=== PATIENT | male | born 1990 | race Caucasian/White ===

== ENCOUNTER 2018-05-21 07:39 | Outpatient (CLI) | payer OTHER ==
[2018-05-21] MEDS ORDERED: Gadobenate Dimeglumine 529 MG/1 ML (20ML VIAL) ONE (10:18)
--- NOTE | 2018-05-21 10:40 | MRI ---
MRI THORACIC SPINE WITHOUT CONTRAST: History: History of low back surgery in 2016. Pain. Comparison: None. Technique: MRI of the thoracic spine was performed without intravenous gadolinium administration. Mul tisequential, multiplanar imaging is performed. FINDINGS: Appropriate T1 marrow signal intensity of the thoracic vertebrae. Thoracic spine vertebral body heigh t is maintained. There is no fracture. No significant STIR hyperintensity to suggest vertebral body e sarah or ligamentous injury. Visualized mediastinal structures, lung parenchyma and solid organs are unremarkable. Conus medullaris terminates at the inferior aspect of T12. The thoracic cord has an overall normal size and signal intensity. There is a central T2 hyperintense lesion that starts at the T5 level and extends inferiorly to the level of T9. A syringohydromyelia i s favored. However, post contrast imaging is recommended to exclude an underlying intramedullary proc ess. Throughout the thoracic spine, no significant central canal stenosis or foraminal narrowing. IMPRESSION: 1. No significant central canal stenosis or foraminal narrowing. 2. 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 3. Post contrast imaging is recommended to exclude a possible underlying intermedullary mass. ADDENDUM HISTORY: Possible syringohydromyelia noted in the thoracic spine. TECHNIQUE: Post contrast imaging of the thoracic spine is performed in the axial plane. FINDINGS: There is no evidence of abnormal enhancement of the thoracic cord. No cord expansion. There is no a bnormal enhancement of the thoracic vertebrae. IMPRESSION: T2 hyperintensity noted in the thoracic cord, compatible with syringohydromyelia. There is no abnorm al enhancement of the thoracic cord. POS: [facility]
--- NOTE | 2018-05-21 11:05 | MRI ---
MRI LUMBAR SPINE WITH AND WITHOUT CONTRAST: HISTORY: Lumbar radiculopathy. Right hip pain, extending to the groin and down the right thigh. COMPARISON: None. TECHNIQUE: MRI lumbar spine is performed with and without intravenous Gadolinium administration. Multisequentia l, multiplanar imaging is performed. FINDINGS: Appropriate T1 marrow signal intensity of the lumbar vertebra. Lumbar spine vertebral body height is maintained, and there is no fracture. No significant STIR hyperintensity to suggest vertebral body edema or ligamentous injury. There are type I modic changes at the inferior endplate of L5 and the s uperior endplate of S1. There is no pathologic enhancement of the vertebral bodies. There is no abn ormal enhancement within the thecal sac, including the cauda equina and conus medullaris. Symmetric signal intensity of the psoas muscles and paraspinal muscles. No abnormality in the visual ized solid organs. The conus medullaris terminates at the inferior aspect of L1. T12-L1: Adequate disk hydration. No significant central spinal canal or neural foraminal narrowing. L1-L2: Adequate disk hydration. No significant central canal stenosis. The foramina are patent. L2-L3: Adequate disk hydration. No significant central canal stenosis or neural foraminal narrowing . L3-L4: Adequate disk hydration. No significant central canal stenosis or neural foraminal narrowing . L4-L5: Mild loss of disk space height. There is a central disk protrusion with associated annular f issure. Mild flattening of the ventral thecal sac. Mild central canal stenosis. The neural foramin a are patent. L5-S1: Desiccation with moderate loss of disk space height. There is a central/left subarticular di sk protrusion. There is no significant stenosis upon the thecal sac. Disk material encroaches upon and minimally abuts the traversing left S1 nerve root. There is no significant central canal stenosi s. Mild right and mild to moderate left foraminal narrowing. There is a small amount of disk materi al in the left neural foramen, abutting the foraminal left L5 nerve root. There is an incompletely e valuated right laminectomy defect, which is predominantly at the S1 level. On the post contrast imag es, there is minimal scar tissue at the operative site. IMPRESSION: 1. Postoperative changes at the S1 level, involving the posterior elements. 2. No significant central canal stenosis or foraminal narrowing. POS: [facility]
== END 2018-05-21 07:40 | disposition home or self-care (01) ==
LOC: TBSIIMAG 07:39
PROVIDERS: ATTEND Neurological Surgery
DX: M54.16 Radiculopathy, lumbar region (principal); R37 Sexual dysfunction, unspecified; R93.7 Abnormal findings on diagnostic imaging of other parts of musculoskeletal system; Z98.890 Other specified postprocedural states
CPT/HCPCS: 72146; 72157; 72158; A9577